=== PATIENT | female | born 1960 | race Caucasian/White ===

== ENCOUNTER 2022-05-07 10:50 | Inpatient (IN) | payer OTHER ==
[2022-05-07 11:39] VITALS: BMI 32.9
[2022-05-07] MEDS ORDERED: MAG HYDROX/AL HYDROX/SIMETH 30 ML UNIT-DOSE CUP PO PRN (15:42)
[2022-05-07] MEDS ORDERED: NALOXONE HCL (KLOXXADO) 8 MG SPRAY NS PRN (15:42)
[2022-05-07] MEDS ORDERED: LOPERAMIDE HCL 2 MG CAPSULE PO PRN (15:42)
[2022-05-07] MEDS ORDERED: ACETAMINOPHEN 325 MG TABLET (FP) PO PRN (15:42)
[2022-05-07] MEDS ORDERED: IBUPROFEN 400 MG TABLET (FP) PO PRN (15:42)
[2022-05-07] MEDS ORDERED: DICYCLOMINE HCL 10 MG CAPSULE PO PRN (15:42)
[2022-05-07] MEDS ORDERED: POLYETHYLENE GLYCOL (HEALTHYLAX) 3350 17 GM PACKET PO PRN (15:42)
[2022-05-07] MEDS ORDERED: MAGNESIUM HYDROX 2400MG/30ML ORAL SUSPENSION 30 ML CUP PO PRN (15:42)
[2022-05-07] MEDS ORDERED: BISMUTH SUBSALICYLATE 524 MG/30 ML PO PRN (15:42)
[2022-05-07] MEDS ORDERED: BENZOCAINE/MENTHOL (CHLORASEPTIC ) LOZENGE MM PRN (15:42)
[2022-05-07] MEDS: PRENATAL VITAMINS W/ FOLIC ACID TABLET (FP) PO SCH (17:47)
[2022-05-07] MEDS: NICOTINE 14 MG/24 HOURS TOPICAL PATCH TD SCH (17:48)
[2022-05-07] MEDS ORDERED: MELATONIN 5 MG TABLETS PO SCH (22:00)
[2022-05-07] MEDS: THIAMINE HCL 100 MG TABLET (FP) PO SCH (22:32)
[2022-05-07] MEDS: METHOCARBAMOL 500 MG TABLET PO PRN (22:33)
[2022-05-08] MEDS ORDERED: methaDONE HCL 10 MG TABLET (FOR DETOX USE ONLY) PO ONE (09:34)
[2022-05-08] MEDS: METHOCARBAMOL 500 MG TABLET PO PRN ×2 (10:27→17:57)
[2022-05-08] MEDS: hydrOXYzine PAMOATE 25 MG CAPSULE (FP) PO PRN ×2 (10:28→17:57)
[2022-05-08] MEDS: PRENATAL VITAMINS W/ FOLIC ACID TABLET (FP) PO SCH (10:32)
[2022-05-08] MEDS: NICOTINE 14 MG/24 HOURS TOPICAL PATCH TD SCH (10:32)
[2022-05-08 10:49] LABS: HEMATOCRIT 35.5 % (32.4-45.2); HEMOGLOBIN 12.2 GM/dL (10.7-15.3); MCH 28.9 pg (25.7-33.7); MCHC 34.4 g/dl (32.0-36.0); MEAN PLT VOLUME 8.3 fl (7.5-11.1); PLATELET COUNT 271 10^3/uL (134-434); RBC 4.23 M/mm3 (3.60-5.2); RDW 14.1 % (11.6-15.6); WHITE BLOOD COUNT 5.9 K/mm3 (4.0-10.0)
[2022-05-08 12:42] LABS: ALBUMIN 3.1 g/dl (3.4-5.0); CALCIUM 8.7 mg/dL (8.5-10.1)
[2022-05-08 12:44] LABS: CREATININE 0.6 mg/dL (0.55-1.3)
[2022-05-08 12:45] LABS: BILIRUBIN,TOTAL 0.5 mg/dL (0.2-1)
[2022-05-08 12:46] LABS: TOT PROT 6.3 g/dl (6.4-8.2)
[2022-05-08] MEDS ORDERED: PATIENT'S OWN MEDICATION (NON-FORMULARY) (Diclofenac Sodium [Voltaren] 100 GM Gel..Gram.) TP PRN (13:48)
[2022-05-08] MEDS: ROSUVASTATIN CA 10 MG TABLET PO SCH (14:41)
[2022-05-08] MEDS: ATENOLOL 25 MG TABLET (FP) PO SCH (14:41)
[2022-05-08] MEDS ORDERED: GABAPENTIN 300 MG CAPSULE PO ONE (20:37)
[2022-05-08] MEDS: SUVOREXANT 10 MG TABLET PO PRN (22:06)
[2022-05-08] MEDS: THIAMINE HCL 100 MG TABLET (FP) PO SCH (22:07)
[2022-05-09] MEDS: ATENOLOL 25 MG TABLET (FP) PO SCH (10:36)
[2022-05-09] MEDS: hydrOXYzine PAMOATE 25 MG CAPSULE (FP) PO PRN (10:36)
[2022-05-09] MEDS: ROSUVASTATIN CA 10 MG TABLET PO SCH (10:36)
[2022-05-09] MEDS: PRENATAL VITAMINS W/ FOLIC ACID TABLET (FP) PO SCH (10:36)
[2022-05-09] MEDS: METHOCARBAMOL 500 MG TABLET PO PRN ×2 (10:37→22:22)
[2022-05-09] MEDS: NICOTINE 14 MG/24 HOURS TOPICAL PATCH TD SCH (10:43)
[2022-05-09] MEDS: SERTRALINE HCL 50 MG TABLET (FP) PO SCH (11:23)
[2022-05-09] MEDS: PANTOPRAZOLE 40 MG TABLET PO SCH (14:37)
[2022-05-09] MEDS: IBUPROFEN 600 MG TABLET (FP) PO PRN (16:56)
[2022-05-09] MEDS: ONDANSETRON *ODT* 4 MG TABLET SL PRN (16:56)
[2022-05-09] MEDS: cloNIDine HCL 0.1 MG TABLET PO PRN ×2 (16:58→22:22)
[2022-05-09] MEDS: SUVOREXANT 10 MG TABLET PO PRN (22:21)
[2022-05-09] MEDS: THIAMINE HCL 100 MG TABLET (FP) PO SCH (22:21)
[2022-05-10] MEDS: hydrOXYzine PAMOATE 25 MG CAPSULE (FP) PO PRN (09:28)
[2022-05-10] MEDS ORDERED: methaDONE HCL 10 MG TABLET (FOR DETOX USE ONLY) PO ONE (10:00)
[2022-05-10] MEDS: SERTRALINE HCL 50 MG TABLET (FP) PO SCH (10:27)
[2022-05-10] MEDS: ATENOLOL 25 MG TABLET (FP) PO SCH (10:27)
[2022-05-10] MEDS: NICOTINE 14 MG/24 HOURS TOPICAL PATCH TD SCH (10:27)
[2022-05-10] MEDS: ROSUVASTATIN CA 10 MG TABLET PO SCH (10:27)
[2022-05-10] MEDS: PANTOPRAZOLE 40 MG TABLET PO SCH (10:28)
[2022-05-10] MEDS: PRENATAL VITAMINS W/ FOLIC ACID TABLET (FP) PO SCH (10:28)
[2022-05-10] MEDS: ONDANSETRON *ODT* 4 MG TABLET SL PRN (11:04)
[2022-05-10] MEDS: diazePAM 5 MG TABLET PO PRN ×2 (12:07→16:45)
[2022-05-10] MEDS: ACETAMINOPHEN 325 MG TABLET (FP) PO PRN (16:49)
[2022-05-10] MEDS: NICOTINE 10 MG CARTRIDGE (INHALER) IH PRN (20:20)
[2022-05-10] MEDS: IBUPROFEN 600 MG TABLET (FP) PO PRN (20:57)
[2022-05-10] MEDS: cloNIDine HCL 0.1 MG TABLET PO PRN (20:57)
[2022-05-10] MEDS: THIAMINE HCL 100 MG TABLET (FP) PO SCH (22:23)
[2022-05-10] MEDS: METHOCARBAMOL 500 MG TABLET PO PRN (22:57)
[2022-05-11] MEDS: diazePAM 5 MG TABLET PO PRN ×4 (01:12→22:33)
[2022-05-11] MEDS: hydrOXYzine PAMOATE 25 MG CAPSULE (FP) PO PRN ×3 (01:14→22:32)
[2022-05-11] MEDS: IBUPROFEN 600 MG TABLET (FP) PO PRN (03:08)
[2022-05-11] MEDS: METHOCARBAMOL 500 MG TABLET PO PRN ×3 (04:37→22:32)
[2022-05-11] MEDS: PRENATAL VITAMINS W/ FOLIC ACID TABLET (FP) PO SCH (10:10)
[2022-05-11] MEDS: ROSUVASTATIN CA 10 MG TABLET PO SCH (10:10)
[2022-05-11] MEDS: ATENOLOL 25 MG TABLET (FP) PO SCH (10:10)
[2022-05-11] MEDS: SERTRALINE HCL 50 MG TABLET (FP) PO SCH (10:11)
[2022-05-11] MEDS: PANTOPRAZOLE 40 MG TABLET PO SCH (10:11)
[2022-05-11] MEDS: NICOTINE 14 MG/24 HOURS TOPICAL PATCH TD SCH (10:35)
[2022-05-11] MEDS: ACETAMINOPHEN 325 MG TABLET (FP) PO PRN ×2 (13:08→22:33)
[2022-05-11] MEDS: ONDANSETRON *ODT* 4 MG TABLET SL PRN (18:12)
[2022-05-11] MEDS: THIAMINE HCL 100 MG TABLET (FP) PO SCH (22:33)
[2022-05-12] MEDS: diazePAM 5 MG TABLET PO PRN ×4 (02:43→22:04)
[2022-05-12] MEDS: METHOCARBAMOL 500 MG TABLET PO PRN ×4 (04:46→22:02)
[2022-05-12] MEDS: PANTOPRAZOLE 40 MG TABLET PO SCH (09:49)
[2022-05-12] MEDS: PRENATAL VITAMINS W/ FOLIC ACID TABLET (FP) PO SCH (09:49)
[2022-05-12] MEDS: SERTRALINE HCL 50 MG TABLET (FP) PO SCH (09:49)
[2022-05-12] MEDS: ATENOLOL 25 MG TABLET (FP) PO SCH (09:49)
[2022-05-12] MEDS: ROSUVASTATIN CA 10 MG TABLET PO SCH (09:49)
[2022-05-12] MEDS: NICOTINE 14 MG/24 HOURS TOPICAL PATCH TD SCH (09:54)
[2022-05-12] MEDS ORDERED: methaDONE HCL 10 MG TABLET (FOR DETOX USE ONLY) PO ONE (10:00)
[2022-05-12] MEDS: IBUPROFEN 600 MG TABLET (FP) PO PRN (15:44)
[2022-05-12] MEDS: NICOTINE 10 MG CARTRIDGE (INHALER) IH PRN (17:19)
[2022-05-12] MEDS: hydrOXYzine PAMOATE 25 MG CAPSULE (FP) PO PRN (17:33)
[2022-05-12] MEDS ORDERED: SUVOREXANT 10 MG TABLET PO PRN (22:00)
[2022-05-12] MEDS: THIAMINE HCL 100 MG TABLET (FP) PO SCH (22:03)
[2022-05-13] MEDS: IBUPROFEN 600 MG TABLET (FP) PO PRN ×2 (02:40→10:03)
[2022-05-13 09:57] VITALS: BP 152/70; PULSE 80; RESP 17; TEMP 98.1
[2022-05-13] MEDS: ATENOLOL 25 MG TABLET (FP) PO SCH (10:02)
[2022-05-13] MEDS: ROSUVASTATIN CA 10 MG TABLET PO SCH (10:02)
[2022-05-13] MEDS: PRENATAL VITAMINS W/ FOLIC ACID TABLET (FP) PO SCH (10:02)
[2022-05-13] MEDS: SERTRALINE HCL 50 MG TABLET (FP) PO SCH (10:02)
[2022-05-13] MEDS: ONDANSETRON *ODT* 4 MG TABLET SL PRN (10:02)
[2022-05-13] MEDS: NICOTINE 14 MG/24 HOURS TOPICAL PATCH TD SCH (10:02)
[2022-05-13] MEDS: PANTOPRAZOLE 40 MG TABLET PO SCH (10:02)
[2022-05-13] MEDS ORDERED: LACTULOSE 20 GM/30 ML UDC (FOR ORAL USE ONLY) PO SCH (14:00)
== END 2022-05-13 10:23 | disposition home or self-care (01) | DRG 773 ==
LOC: YASAS 10:50 → Y6N 16:29
PROVIDERS: ADMIT Allergy & Immunology; ATTEND Surgery
PROC: HZ2ZZZZ Detoxification Services for Substance Abuse Treatment (ICD-10-PCS; principal; 2022-05-07)
DX: F11.23 Opioid dependence with withdrawal (principal); F13.20 Sedative, hypnotic or anxiolytic dependence, uncomplicated; F17.210 Nicotine dependence, cigarettes, uncomplicated; F19.280 Other psychoactive substance dependence with psychoactive substance-induced anxiety disorder; F19.282 Other psychoactive substance dependence with psychoactive substance-induced sleep disorder; F41.9 Anxiety disorder, unspecified; F32.A Depression, unspecified; F43.10 Post-traumatic stress disorder, unspecified; E78.5 Hyperlipidemia, unspecified; I10 Essential (primary) hypertension; K21.9 Gastro-esophageal reflux disease without esophagitis; R79.89 Other specified abnormal findings of blood chemistry; Z91.410 Personal history of adult physical and sexual abuse; Z88.0 Allergy status to penicillin; Z59.01 Sheltered homelessness; Z56.0 Unemployment, unspecified
CPT/HCPCS: 36415; 80053; 82140; 82962; 85027; 86780; C9803-CS; Q0162; U0003; U0005